=== PATIENT | male | born 1995 | race Caucasian/White ===

== ENCOUNTER 2016-10-04 19:37 | Emergency (ER) | payer OTHER ==
[2016-10-04 19:48] VITALS: BP 139/63
--- NOTE | 2016-10-04 21:08 | RAD ---
HISTORY: Wheezing, shortness of breath COMPARISONS: August 25, 2011 VIEWS: 2: Frontal dual-energy and lateral views of the chest. FINDINGS: CARDIOMEDIASTINAL SILHOUETTE: The cardiomediastinal silhouette is normal. SONAM: The sonam are normal. PLEURA: The costophrenic angles are sharp. No pleural abnormalities are noted. LUNG PARENCHYMA: The lungs are clear. ABDOMEN: The upper abdomen is clear. There is no subphrenic gas. BONES AND SOFT TISSUES: No bone or soft tissue abnormalities are noted. OTHER: None. IMPRESSION: NO ACTIVE CARDIOPULMONARY DISEASE.
--- NOTE | 2016-10-04 22:31 | ED ---
Respiratory - HPI Summary HPI Summary: Patient arrives to ED with CC of cough with scant amount of blood and sinus pressure with bloody discharge from the left nostril starting 3 days ago. Denies GRULLON, fever. Patient is a smoker. States the cough is productive with yellow phlegm. He states he has sinusitis in the past, but has never had blood in phlegm or nasal discharge. Denies weakness, or pain. History of walking PNA last year. - History of Current Complaint Chief Complaint: EDUpperRespComplaint Stated Complaint: COUGH/COLD/CONGESTION /BLOODY NOSE Time Seen by Provider: 10/04/16 19:53 Hx Obtained From: Patient Onset/Duration: Gradual Onset Timing: Constant Initial Severity: Mild Current Severity: Mild Pain Intensity: 0 Character: Cough (Productive) Sputum Amount: Moderate Sputum Color: Shafer-Tinged Aggravating Factor(s): URI, Passive Smoke Exposure Alleviating Factor(s): Nothing Associated Signs and Symptoms: URI, Nasal Congestion, Sinus Discomfort - Risk Factors Status Asthmaticus Risk Factors: Negative Pulmonary Embolism Risk Factors: Negative Cardiac Risk Factors: Negative Pseudomonas Risk Factors: Negative Tuberculosis Risk Factors: Negative - Allergy/Home Medications Allergies/Adverse Reactions: Allergies Allergy/AdvReac Type Severity Reaction Status Date / Time Shellfish-derived Products Allergy Swelling Verified 10/02/15 15:39 Of Face,Lips,& Throat PMH/Surg Hx/FS Hx/Imm Hx Previously Healthy: Yes Respiratory History: Reports: Hx Asthma History: Reports: Other Problems/Disorders - testicular torsion treated with orchiopexy ~2009 Psychiatric History: Reports: Hx Substance Abuse Denies: Hx Eating Disorder - Surgical History Surgery Procedure, Year, and Place: orchiopexy ~2009 - Immunization History Date of Tetanus Vaccine: Unknown Date of Influenza Vaccine: Unknown Infectious Disease History: No Infectious Disease History: Denies: Traveled Outside the [place] in Last 30 Days - Family History Known Family History: Positive: None - reviewed & noncontributory, Diabetes - mother - Social History Occupation: Unemployed Lives: With Family Alcohol Use: Occasionally Hx Substance Use: Yes Substance Use Type: Reports: None Substance Use Comment - Amount & Last Used: QUIT SMOKING MARIJUANA IN 2013 Hx Tobacco Use: Yes Smoking Status (MU): Heavy Every Day Tobacco Smoker Review of Systems Constitutional: Negative Eyes: Negative Positive: Nasal Discharge Cardiovascular: Negative Positive: Cough Gastrointestinal: Negative Skin: Negative Neurological: Negative Psychological: Normal All Other Systems Reviewed And Are Negative: Yes Physical Exam Triage Information Reviewed: Yes Vital Signs On Initial Exam: Initial Vitals Temp Pulse Resp BP Pulse Ox 98.4 F 81 18 139/63 99 10/04/16 19:42 10/04/16 19:42 10/04/16 19:42 10/04/16 19:42 10/04/16 19:42 Vital Signs Reviewed: Yes Appearance: Positive: Well-Appearing, No Pain Distress, Obese Skin: Positive: Warm Head/Face: Positive: Normal Head/Face Inspection Eyes: Positive: EOMI, Conjunctiva Clear ENT: Positive: Pharyngeal erythema, Nasal congestion, Nasal drainage Neck: Positive: Supple, No Lymphadenopathy Respiratory/Lung Sounds: Positive: Wheezes Cardiovascular: Positive: Normal Musculoskeletal: Positive: Normal, Strength/ROM Intact Neurological: Positive: Normal, Speech Normal Psychiatric: Positive: Normal AVPU Assessment: Alert Diagnostics - Vital Signs Vital Signs Temp Pulse Resp BP Pulse Ox 10/04/16 19:42 98.4 F 81 18 139/63 99 - Laboratory Lab Results: Lab Results 10/04/16 Range/Units 21:05 Group A Strep Rapid Negative (Negative) Lab Statement: Any lab studies that have been ordered have been reviewed, and results considered in the medical decision making process. Disposition - Course Course Of Treatment: CXR and rapid strep ordered. Both negative. 3 days cough with sinus drainage. Sudafed and tessalon given. Patient will follow up with PCP and encouraged to return to ED if symptoms fail to improve after 1 week or fever develops. - Differential Dx - Cardiopulmonary Differential Diagnoses - Cardiopulmonary: Bronchitis, Lower Resp Infection, Sinusitis - Diagnoses Provider Diagnoses: Sinusitis nasal - Physician Notifications Instructed by Provider To: Have Pt Call For Appt. Discharge - Discharge Plan Condition: Stable Disposition: HOME Prescriptions: Benzonatate CAP* [Tessalon CAP*] 100 mg PO TID #21 cap Pseudoephedrine HCl [Sudafed 24 Hour] 240 mg PO DAILY #10 tab Patient Education Materials: Sinusitis (ED) Referrals: Orly Dotson MD [Primary Care Provider] - Additional Instructions: Take medications as prescribed to you. Viral congestion and cough tends to last up to three weeks. If you feel you are not improving, come back to ER. Follow up with your PCP.
== END 2016-10-04 21:34 | disposition home or self-care (01) ==
LOC: ED 19:37
DX: J32.9 Chronic sinusitis, unspecified (principal); R09.81 Nasal congestion; R05 Cough; F17.210 Nicotine dependence, cigarettes, uncomplicated; J06.9 Acute upper respiratory infection, unspecified
CPT/HCPCS: 71020; 87651; 99281

== ENCOUNTER 2017-08-04 09:25 | Emergency (ER) | payer MEDICAID, OTHER ==
[2017-08-04] MEDS ORDERED: Albuterol/Ipratropium NEB.SOL* Albuterol 2.5 MG/Ipratropium 0.5 MG 3 ML INH ONE (10:00)
[2017-08-04] MEDS ORDERED: Ketorolac INJ* 30 MG/ML 1 ML VIAL IV ONE (10:02)
[2017-08-04] MEDS ORDERED: NS 0.9% 1000 ML* 2,000 ML IV ONE (10:02)
[2017-08-04] MEDS ORDERED: Al Hydrox/Mg Hydrox/Simet LIQ* 30 ML UDC PO ONE (10:02)
[2017-08-04] MEDS ORDERED: Lidocaine 2% VISCOUS* 15 ML UDC PO ONE (10:02)
--- NOTE | 2017-08-04 10:08 | ED ---
Abdominal Pain/Male - HPI Summary HPI Summary: 22 male presents to ED BIBA with complaints of diffuse abdominal pain and chest pain. States abdominal pain began ~3 days ago. He has been unable to have a bowel movement since last Sunday. States he attempted this morning but only had "a rabbit sized stool". Has not tried/taken any medications. No new medications. States he has also been very stressed lately. Also complained of mid sternal chest pain that began last night and has since resolved, last a few hours. Described it as sharp and stating without radiation. Denies SOB and difficulty breathing. Admits to wheezing, however has asthma and has not had his inhaler due to not having a PCP. Denies vomiting. Admits to some nausea at times. Denies fever, chills, urinary symptoms, genitalia symptoms, recent travel and antibiotic use. Denies blood in stool. No PMHx other than irritable bowel syndrome and asthma. No other complaints at this time. Admits to sometimes being constipated, but never this bad or long. Has been eating a lot less, however has been drinking. Chest pain is similar to previous acid reflux attacks. - History of Current Complaint Chief Complaint: EDAbdPain Stated Complaint: ABD PAIN Hx Obtained From: Patient Onset/Duration: Sudden Onset, Lasting Days, Still Present, Worse Since Timing: Constant Severity Initially: Moderate Severity Currently: Severe Pain Intensity: 11 Pain Scale Used: 0-10 Numeric Location: Diffuse Radiates: No Radiates to: Chest Character: Sharp, Dull, Cramping Aggravating Factor(s): Nothing Alleviating Factor(s): Nothing Associated Signs And Symptoms: Positive: Chest Pain, Constipation, Nausea. Negative: Fever, Back Pain, Blood in Stool, Urinary Symptoms, Decreased Appetite , Vomiting, Diarrhea, Penile Discharge Similar Episode/Dx As:: previous acid reflux attacks and constipation "but worse " - Allergies/Home Medications Allergies/Adverse Reactions: Allergies Allergy/AdvReac Type Severity Reaction Status Date / Time Shellfish-derived Products Allergy Swelling Verified 10/02/15 15:39 Of Face,Lips,& Throat PMH/Surg Hx/FS Hx/Imm Hx Endocrine/Hematology History: Denies: Hx Diabetes Cardiovascular History: Denies: Hx Hypertension Respiratory History: Reports: Hx Asthma History: Reports: Other Problems/Disorders - testicular torsion treated with orchiopexy ~2009 Psychiatric History: Reports: Hx Substance Abuse Denies: Hx Eating Disorder - Surgical History Surgery Procedure, Year, and Place: orchiopexy ~2010 - Immunization History Date of Tetanus Vaccine: Unknown Date of Influenza Vaccine: Unknown Immunizations Up to Date: Yes Infectious Disease History: No Infectious Disease History: Denies: Traveled Outside the [place] in Last 30 Days - Family History Known Family History: Positive: None - reviewed & noncontributory, Diabetes - mother - Social History Alcohol Use: None Hx Substance Use: Yes - opiate and marijuana abuse 3 years ago, nothing since Substance Use Type: Reports: None Substance Use Comment - Amount & Last Used: hx of pill and Marijuana Hx Tobacco Use: Yes Smoking Status (MU): Heavy Every Day Tobacco Smoker Review of Systems Constitutional: Negative Positive: Chest Pain Respiratory: Negative Positive: Cough - over the past couple of weeks "cold like symptoms" improving Positive: Abdominal Pain Genitourinary: Negative Musculoskeletal: Negative Neurological: Negative All Other Systems Reviewed And Are Negative: Yes Physical Exam Triage Information Reviewed: Yes Vital Signs On Initial Exam: Initial Vitals Temp Pulse Resp BP Pulse Ox 98.2 F 82 18 145/80 96 08/04/17 09:36 08/04/17 09:36 08/04/17 09:36 08/04/17 09:36 08/04/17 09:36 96% patient has wheezing diffusely, asthma medical history without inhaler or treatment due to noncompliance and no PCP. BP improved 136/58 O2 improved to 98% after meds and pain relief. Vital Signs Reviewed: Yes Appearance: Positive: Well-Appearing, Well-Nourished, Pain Distress - mild- moderate Skin: Positive: Warm, Skin Color Reflects Adequate Perfusion, Dry. Negative: Cold, Cyanosis @, Pale, Erythema @ Head/Face: Positive: Normal Head/Face Inspection Eyes: Positive: Conjunctiva Clear ENT: Positive: Hearing grossly normal, Pharynx normal Neck: Positive: Supple, Nontender, No Lymphadenopathy Respiratory/Lung Sounds: Positive: Clear to Auscultation, Breath Sounds Present , Wheezes - diffuse. Negative: Rales, Rhonchi Cardiovascular: Positive: Normal, RRR, Pulses are Symmetrical in both Upper and Lower Extremities. Negative: Murmur, Rub Abdomen Description: Positive: No Organomegaly, Soft, Distended, Guarding, Other : - diffuse tenderness. Negative: Bruit, CVA Tenderness (R), CVA Tenderness (L) , McBurney's Point Tenderness Bowel Sounds: Positive: Present, Hypoactive Musculoskeletal: Positive: Normal, Strength/ROM Intact Neurological: Positive: Normal, Sensory/Motor Intact, Alert, Oriented to Person Place, Time - Bita Coma Scale Coma Scale Total: 15 Diagnostics - Vital Signs Vital Signs Temp Pulse Resp BP Pulse Ox 08/04/17 09:41 89 22 98 08/04/17 09:36 98.2 F 82 18 145/80 96 - Laboratory Result Diagrams: 08/04/17 10:24 08/04/17 10:24 Lab Statement: Any lab studies that have been ordered have been reviewed, and results considered in the medical decision making process. - Radiology abdomen xray Xray Interpretation: Positive (See Comments) - Moderate stool in the colon with moderate rectal distention with formed appearing stool. Negative for dilated bowel loops to indicate bowel obstruction. Radiology Interpretation Completed By: Radiologist - and myself - EKG EKG Cardiac Rate: NL EKG Rhythm: Sinus Rhythm ST Segment: Normal Ectopy: None EKG Interpretation: NSR at 71bpm, no STEMI or obvious changes EKG Comparison: No Significant Change Re-Evaluation - Re-Evaluation First Eval Re-Evaluation Time: 11:30 Change: Improved - had relief from medications and duoneb, updated on labs and imaging results. pain completely resolved. Abdominal Pain Fem Course/Dx - Course Course Of Treatment: labs and urinalysis obtained, unremarkable without WBC or CRP elevation. xray of abdomen obtained and showed constipation. given duoneb due to diffuse wheezing from asthma had significant relief. EKG obtained and NSR without any concerns. troponin obtained and negative. This does not appear to be a cardiorespiratory etiology. Instead it appears to be stress related along with GERD/constipation. Will give mag citrate and miralax. also educated on high fiber diet and foods to stay away from. no concern for other etiology at this time. normal vitals. no bowel obstruction. given inhaler to use for asthma at home. Aware of worsening signs and symptoms to watch out for. Follow up with PCP. No other complaints. - Diagnoses Differential Diagnosis/HQI/PQRI: ACS, Bowel Obstruction, Constipation, Diverticulitis, Other - chest pain, asthma, anxiety Provider Diagnoses: Constipation, Wheezing, Asthma, Abdominal pain Discharge - Discharge Plan Condition: Stable Disposition: HOME Prescriptions: Albuterol HFA INHALER* [Ventolin HFA Inhaler*] 1 - 2 puff INH Q4H PRN #1 mdi PRN Reason: Sob/Wheezing Magnesium CITRATE* [Citrate of Magnesia*] 150 ml PO SEE INSTRUCTIONS #2 btl Polyethylene Glycol 3350* [Miralax*] 17 gm PO DAILY #3 packet Patient Education Materials: Constipation in Children (ED), High Fiber Diet (ED ), Acute Abdominal Pain (ED), Gas and Bloating (ED), Wheezing (ED) Referrals: Orly Dotson MD [Primary Care Provider] - [facility] [place] [facility] [Outside] Additional Instructions: Use prescribed medication as directed. Eat high fiber diet and stay away from binding foods such as bananas, apples, toast, rice. Give medication a few days to take into effect. Increase fluid intake. Use inhaler when needed for SOB/Wheezing. Call and make an appointment with PCP within 7 days. Any new or worsening symptoms please seek medical attention, as discussed.
[2017-08-04 10:32] LABS: Hematocrit 43 % (42-52); Hemoglobin 15.1 g/dl (14.0-18.0); Mean Corpuscular HGB Conc 35 g/dl (31-36); Mean Corpuscular Hemoglobin 30 pg (27-31); Mean Corpuscular Volume 85 fL (80-94); Mean Platelet Volume 10 um3 (7.4-10.4); Red Blood Count 5.09 10^6/ul (4.0-5.4); Red Cell Distribution Width 13 % (10.5-15); White Blood Count 8.2 10^3/ul (3.5-10.8)
[2017-08-04 10:48] LABS: ALT 62 U/L (7-52); AST 38 U/L (13-39); Albumin 4.4 g/dL (3.2-5.2); Alkaline Phosphatase 66 U/L (34-104); Amylase 17 U/L (29-103); Anion Gap 8 mmol/L (2-11); BUN/Creatinine Ratio 14.9 (8-20); Blood Urea Nitrogen 13 mg/dL (6-24); C Reactive Protein < 1.00 mg/L (< 5.00); CO2 Carbon Dioxide 23 mmol/L (22-32); Calcium 9.6 mg/dL (8.6-10.3); Chloride 109 mmol/L (101-111); EGFR African American 139.9 (>60); EGFR Non-African American 108.7 (>60); Globulin 2.5 g/dL (2-4); Glucose 108 mg/dL (70-100); Lipase 15 U/L (11.0-82.0); Potassium 3.7 mmol/L (3.5-5.0); Sodium 140 mmol/L (133-145); Total Protein 6.9 g/dL (6.4-8.9)
--- NOTE | 2017-08-04 11:12 | RAD ---
Indication: Diffuse abdominal pain. Constipation for one week. Nausea. Comparison: October 12, 2011 Technique: Supine and upright views of the abdomen. Report: No radiographic evidence for free air. Unremarkable bowel gas pattern. Moderate stool in the colon with moderate rectal distention with formed appearing stool. Negative for dilated bowel loops to indicate bowel obstruction. Negative for suspicious calcifications. Unremarkable soft tissue contours. IMPRESSION: Moderate stool in the colon with moderate rectal distention with formed appearing stool. Negative for dilated bowel loops to indicate bowel obstruction.
[2017-08-04 11:43] VITALS: BP 136/58
[2017-08-04 11:58] LABS: Urine Bacteria Absent (Absent); Urine Bilirubin Negative (Negative); Urine Glucose Negative (Negative); Urine Nitrite Negative (Negative)
== END 2017-08-04 12:18 | disposition home or self-care (01) ==
LOC: ED 09:25
DX: K59.00 Constipation, unspecified (principal); J45.909 Unspecified asthma, uncomplicated; R10.9 Unspecified abdominal pain; K58.9 Irritable bowel syndrome, unspecified; Z72.0 Tobacco use
CPT/HCPCS: 36415; 74020; 80053; 81003; 81015; 82150; 82553; 83605; 83690; 83874; 84484; 85025; 86140; 93005; 96360; 96374; 99282; A9270-GY; J1885

== ENCOUNTER 2018-03-03 17:33 | Emergency (ER) | payer OTHER ==
[2018-03-03] MEDS ORDERED: Magnesium CITRATE* 300 ML BTL PO ONE (17:51)
--- NOTE | 2018-03-03 18:38 | RAD ---
INDICATION: Constipation. COMPARISON: Comparison is made with a prior study from August 04, 2017. TECHNIQUE: Frontal supine films of the abdomen were obtained. FINDINGS: The small bowel and colon appear nondistended. There is a moderate amount retained stool within the colon which is most prominent within the rectosigmoid colon which is slightly distended. No significant abnormal calcifications are seen. IMPRESSION: MODERATE AMOUNT RETAINED STOOL WHICH IS MOST PROMINENT IN THE RECTOSIGMOID COLON.
[2018-03-03 19:06] VITALS: BP 123/69
--- NOTE | 2018-03-03 19:34 | ED ---
Nausea/Vomiting/Diarrhea HPI - HPI Summary HPI Summary: Patient is a 22-year-old male with a history of encopresis and constipation presented to the ED with chief complaint of no bowel movement 3 days. He states he normally takes Colace, however his doctor has not prescribed him more and he is unable to afford this at the pharmacy or [id number]. He endorses a mild amount of left lower quadrant tenderness without nausea, vomiting. Patient is obese and is a smoker. He states he does not drink fluids regularly and does not drink water. He drinks soda daily. He has not tried anything OTC for relief. - History of Current Complaint Chief Complaint: EDGeneral Stated Complaint: CONSTIPATION Time Seen by Provider: 03/03/18 17:45 Hx Obtained From: Patient Onset/Duration: Gradual Onset Timing: Constant Severity Initially: Moderate Severity Currently: Moderate Pain Intensity: 0 Pain Scale Used: 0-10 Numeric Location: Discrete At: LLQ Character: Dull, Cramping Aggravating Factor(s): Nothing Alleviating Factor(s): Nothing - Risk Factors Influenza Risk Factors: Negative - Allergies/Home Medications Allergies/Adverse Reactions: Allergies Allergy/AdvReac Type Severity Reaction Status Date / Time shellfish derived Allergy Swelling Verified 03/03/18 17:36 Of Face,Lips,& Throat PMH/Surg Hx/FS Hx/Imm Hx Previously Healthy: Yes Endocrine/Hematology History: Denies: Hx Diabetes Cardiovascular History: Denies: Hx Hypertension Respiratory History: Reports: Hx Asthma History: Reports: Other Problems/Disorders - testicular torsion treated with orchiopexy ~2009 Psychiatric History: Reports: Hx Substance Abuse Denies: Hx Eating Disorder - Surgical History Surgery Procedure, Year, and Place: orchiopexy ~2009 - Immunization History Date of Tetanus Vaccine: Unknown Date of Influenza Vaccine: Unknown Hx Pertussis Vaccination: No Immunizations Up to Date: Unable to Obtain/Confirm Infectious Disease History: No Infectious Disease History: Denies: Traveled Outside the [place] in Last 30 Days - Family History Known Family History: Positive: None - reviewed & noncontributory, Diabetes - mother - Social History Occupation: Unemployed Lives: With Family Alcohol Use: None Hx Substance Use: Yes - opiate and marijuana abuse 3 years ago, nothing since Substance Use Type: Reports: None Substance Use Comment - Amount & Last Used: hx of pill and Marijuana Hx Tobacco Use: Yes Smoking Status (MU): Heavy Every Day Tobacco Smoker Review of Systems Constitutional: Negative Negative: Fever, Skin Diaphoresis Negative: Palpitations, Chest Pain Positive: Abdominal Pain. Negative: Vomiting, Diarrhea, Nausea Genitourinary: Negative Positive: no symptoms reported, see HPI Negative: Arthralgia, Myalgia Skin: Negative Neurological: Negative All Other Systems Reviewed And Are Negative: Yes Physical Exam Triage Information Reviewed: Yes Vital Signs On Initial Exam: Initial Vitals Temp Pulse Resp BP Pulse Ox 98.5 F 79 13 117/75 98 03/03/18 17:35 03/03/18 17:35 03/03/18 17:35 03/03/18 17:35 03/03/18 17:35 Vital Signs Reviewed: Yes Appearance: Positive: Well-Appearing, Well-Nourished Skin: Positive: Warm, Skin Color Reflects Adequate Perfusion Head/Face: Positive: Normal Head/Face Inspection Eyes: Positive: EOMI, NAVJOT, Conjunctiva Clear Neck: Positive: Supple, No Lymphadenopathy Respiratory/Lung Sounds: Positive: Clear to Auscultation, Breath Sounds Present Cardiovascular: Positive: RRR, Pulses are Symmetrical in both Upper and Lower Extremities Abdomen Description: Positive: Nontender Bowel Sounds: Positive: Present Neurological: Positive: Sensory/Motor Intact, Alert, Oriented to Person Place, Time, Speech Normal Psychiatric: Positive: Normal, Affect/Mood Appropriate AVPU Assessment: Alert Diagnostics - Vital Signs Vital Signs Temp Pulse Resp BP Pulse Ox 03/03/18 19:05 98.5 F 80 15 123/69 99 03/03/18 17:35 98.5 F 79 13 117/75 98 - Laboratory Lab Statement: Any lab studies that have been ordered have been reviewed, and results considered in the medical decision making process. Naus/Vom/Diarrhea Course/Dx - Course Course Of Treatment: During the course of treatment, the patient's evaluated for acute constipation. Last BM was on . A mild amount of left lower quadrant pain. He states he takes Colace usually approximately every day or every other day, however his PCP has not renewed his prescription and he is unable to afford this pharmacy. Abdominal x-ray obtained which shows a moderate amount of school most notably in the sigmoid colon. He is given 300mg magnesium citrate and a prescription for Colace. He will return if he does not have a bowel movement with the magnesium citrate. He understands he will drink plenty of fluids and also follow up with his PCP. - Differential Dx/Diagnosis Differential Diagnoses - Male: Constipation Provider Diagnoses: Constipation Condition At Discharge: Stable Discharge - Sign-Out/Discharge Documenting (check all that apply): Discharge/Admit/Transfer - Discharge Plan Condition: Stable Disposition: HOME Prescriptions: Docusate CAP* [Colace Cap*] 100 mg PO DAILY #30 cap Patient Education Materials: Constipation (ED), Encopresis (DC) Referrals: No Primary Care Phys,NOPCP [Primary Care Provider] - Additional Instructions: Drink plenty of water - Take colace as needed for constipation - Billing Disposition and Condition Condition: STABLE Disposition: Home
== END 2018-03-03 19:05 | disposition home or self-care (01) ==
LOC: ED 17:33
DX: K59.00 Constipation, unspecified (principal); R10.32 Left lower quadrant pain; F17.210 Nicotine dependence, cigarettes, uncomplicated
CPT/HCPCS: 74018; 99282; A9270-GY

== ENCOUNTER 2019-01-24 19:50 | Emergency (ER) | payer OTHER ==
[2019-01-24] MEDS ORDERED: Clindamycin CAP* 150 MG PO ONE (20:13)
[2019-01-24] MEDS ORDERED: Ibuprofen TAB* 600 MG PO ONE (20:13)
--- NOTE | 2019-01-24 20:15 | ED ---
Throat Pain/Nasal Congestion - HPI Summary HPI Summary: The patient is a 23 y/o M presenting to [facility] accompanied by girlfriend with a chief complaint of left molar pain which started a few years ago and has been intermittently increasing, with the worst pain in the last two days. He states that the tooth (18) has a hole in it from a filling in a dental carry that has fallen out. The sharp pain radiates to his jaw on the left side. He has been attempting to manage the pain with Ibuprofen 250mg a few times a day with the last dosage at 1200, and he has also been using salt water and mouth wash to decreased likelihood of infection. He has not seen a dentist for the pain. - History of Current Complaint Chief Complaint: EDDentalPain Time Seen by Provider: 01/24/19 20:08 Hx Obtained From: Patient Onset/Duration: Gradual Onset, Lasting Days - two, Still Present Severity: Moderate - Allergies/Home Medications Allergies/Adverse Reactions: Allergies Allergy/AdvReac Type Severity Reaction Status Date / Time shellfish derived Allergy Swelling Verified 01/24/19 19:54 Of Face,Lips,& Throat PMH/Surg Hx/FS Hx/Imm Hx Endocrine/Hematology History: Denies: Hx Diabetes Cardiovascular History: Denies: Hx Hypertension Respiratory History: Reports: Hx Asthma History: Reports: Other Problems/Disorders - testicular torsion treated with orchiopexy ~2009 Psychiatric History: Reports: Hx Substance Abuse Denies: Hx Eating Disorder - Surgical History Surgery Procedure, Year, and Place: orchiopexy ~2009 - Immunization History Date of Tetanus Vaccine: Unknown Date of Influenza Vaccine: Unknown Infectious Disease History: No Infectious Disease History: Denies: Traveled Outside the [place] in Last 30 Days - Family History Known Family History: Positive: Diabetes - mother - Social History Alcohol Use: None Hx Substance Use: Yes - opiate and marijuana abuse 3 years ago, nothing since Substance Use Type: Reports: None Substance Use Comment - Amount & Last Used: hx of pill and Marijuana Hx Tobacco Use: Yes Smoking Status (MU): Heavy Every Day Tobacco Smoker Review of Systems Negative: Fever Positive: Dental Pain - left molar (tooth 18), Other - dental pain radiates into right jaw All Other Systems Reviewed And Are Negative: Yes Physical Exam - Summary Physical Exam Summary: Appearance: Well appearing, no pain distress Skin: warm, dry, reflects adequate perfusion Head/face: normal Eyes: EOMI, NAVJOT ENT: tenderness around tooth 18 Neck: supple, non-tender Respiratory: CTA, breath sounds present Cardiovascular: RRR, pulses symmetrical Abdomen: non-tender, soft Musculoskeletal: normal, strength/ROM intact Neuro: normal, sensory motor intact, A&Ox3 Triage Information Reviewed: Yes Vital Signs On Initial Exam: Initial Vitals Temp Pulse Resp BP Pulse Ox 97.1 F 81 16 168/78 98 01/24/19 19:52 01/24/19 19:52 01/24/19 19:52 01/24/19 19:52 01/24/19 19:52 Vital Signs Reviewed: Yes Diagnostics - Vital Signs Vital Signs Temp Pulse Resp BP Pulse Ox 01/24/19 19:52 97.1 F 81 16 168/78 98 - Laboratory Lab Statement: Any lab studies that have been ordered have been reviewed, and results considered in the medical decision making process. EENT Course/Dx - Course Assessment/Plan: The patient is a 23 y/o M presenting to [facility] accompanied by girlfriend with a chief complaint of left molar pain in tooth 18 which started a few years ago and has been intermittently increasing, with the worst pain in the last two days. Upon physical exam, the patient exhibits tenderness around tooth 18. He is diagnosed with toothache. He will be discharged home with prescription for Ibuprofen and Clindamycin, which he will receive the first dosages in the ED. He will follow up with a dentist in 2-3 days for further treatment. He agrees with this plan and understands the need for return to the ED for any new or worsening symptoms. - Diagnoses Provider Diagnoses: Toothache Discharge - Sign-Out/Discharge Documenting (check all that apply): Patient Departure - Patient will be discharged home. Patient Received Moderate/Deep Sedation with Procedure: No - Discharge Plan Condition: Stable Disposition: HOME Prescriptions: Clindamycin HCl 300 mg PO QID #40 capsule Ibuprofen TAB* [Motrin TAB* 600 MG] 600 mg PO Q8H PRN #15 tab MDD 3 PRN Reason: Pain Patient Education Materials: Toothache (ED) Referrals: [facility] [Outside] - 3 Days [facility] [Outside] - 3 Days Additional Instructions: Please take medications as prescribed. Follow up with a dentist in 2-3 days. RETURN TO THE EMERGENCY DEPARTMENT FOR ANY NEW OR WORSENING SYMPTOMS. - Billing Disposition and Condition Condition: STABLE Disposition: Home - Attestation Statements Document Initiated by Vanessa: Yes Documenting Scribe: Vidhya Simons Provider For Whom Vanessa is Documenting (Include Credential): Dr. Maciej Lagos MD Scribe Attestation: Vidhya Juarez scribed for Dr. Maciej Lagos MD on 01/24/19 at 2032. Scribe Documentation Reviewed: Yes Provider Attestation: The documentation as recorded by the Vidhya chakraborty accurately reflects the service I personally performed and the decisions made by me, Dr. Maciej Lagos MD Status of Scribe Document: Viewed
[2019-01-24 20:23] VITALS: BP 145/76
[2019-01-25] MEDS ORDERED: Docusate CAP* 100 MG PO SCH (09:00)
== END 2019-01-24 20:21 | disposition home or self-care (01) ==
LOC: ED 19:50
DX: K08.89 Other specified disorders of teeth and supporting structures (principal); Z91.013 Allergy to seafood; F17.200 Nicotine dependence, unspecified, uncomplicated
CPT/HCPCS: 99282; A9270-GY

== ENCOUNTER 2019-05-05 19:41 | Emergency (ER) | payer SELFPAY ==
[2019-05-05 19:48] VITALS: BP 133/80
--- NOTE | 2019-05-05 20:01 | UC ---
Respiratory Complaint HPI - HPI Summary HPI Summary: 23 yo male presents with sinus congestion, runny nose, dry cough, and post nasal drip since yesterday. He has been taking dayquill OTC with mild relief. He left work early today and is requesting a work note. He denies fever, chills , sore throat, SOB, abdominal pain, n/v. He smokes daily. - History of Current Complaint Chief Complaint: UCRespiratory Stated Complaint: uri Time Seen by Provider: 05/05/19 20:01 Hx Obtained From: Patient Onset/Duration: Gradual Onset Severity Currently: None Pain Intensity: 0 Character: Cough: Nonproductive - Allergies/Home Medications Allergies/Adverse Reactions: Allergies Allergy/AdvReac Type Severity Reaction Status Date / Time shellfish derived Allergy Swelling Verified 05/05/19 19:48 Of Face,Lips,& Throat Home Medications: Home Medications Dextromethorphan HBr [Vicks Dayquil Cough] 30 mg PO 05/05/19 [History] PMH/Surg Hx/FS Hx/Imm Hx - Additional Past Medical History Additional PMH: None - Surgical History Surgical History: Yes Surgery Procedure, Year, and Place: orchiopexy ~2009 - Family History Known Family History: Positive: Diabetes - mother - Social History Lives: With Family Alcohol Use: None Substance Use Type: None Substance Use Comment - Amount & Last Used: hx of pill and Marijuana Smoking Status (MU): Heavy Every Day Tobacco Smoker Type: Cigarettes Household Exposure Type: Cigarettes, Cigars, Pipe Review of Systems All Other Systems Reviewed And Are Negative: No Constitutional: Positive: Negative Skin: Positive: Negative Eyes: Positive: Negative ENT: Positive: Nasal Discharge, Sinus Congestion Respiratory: Positive: Cough Cardiovascular: Positive: Negative Gastrointestinal: Positive: Negative Genitourinary: Positive: Negative Neurological: Positive: Negative Psychological: Positive: Negative Physical Exam - Summary Physical Exam Summary: GENERAL: NAD. WDWN. No pain distress. SKIN: No rashes, sores, lesions, or open wounds. HEENT: Head: AT/NC Eyes: EOM intact. Conjunctiva clear without inflammation or discharge. Ears: Hearing grossly normal. LEFT TM with mild erythema and bulging. No canal edema or drainage. RIGHT TM WNL and intact. No injection Nose: Nasal mucosa pink and moist. NTTP maxillary and frontal sinus. Throat: Posterior oropharynx without exudates, erythema, or tonsillar enlargement. Uvula midline. NECK: Supple. Nontender. No lymphadenopathy. CHEST: CTAB. No r/r/w. No accessory muscle use. Breathing comfortably and in no distress. CV: RRR. Without m/r/g. Pulses intact. NEURO: Alert. PSYCH: Age appropriate behavior. Triage Information Reviewed: Yes Vital Signs: Initial Vital Signs Temp 98.0 F 05/05/19 19:46 Pulse 87 05/05/19 19:46 Resp 18 05/05/19 19:46 BP 133/80 05/05/19 19:46 Pulse Ox 97 05/05/19 19:46 Vital Signs Reviewed: Yes Respiratory Course/Dx - Course Course Of Treatment: Suspect viral illness. Advised to continue OTC medications and return if symptoms worsen or do not improve. Work not given for today - Differential Dx/Diagnosis Provider Diagnosis: Rhinosinusitis Discharge ED - Sign-Out/Discharge Documenting (check all that apply): Patient Departure All imaging exams completed and their final reports reviewed: No Studies - Discharge Plan Condition: Stable Disposition: HOME Patient Education Materials: Viral Syndrome (ED) Forms: *Work Release Referrals: No Primary Care Phys,NOPCP [Primary Care Provider] - Additional Instructions: If you develop a fever, shortness of breath, chest pain, new or worsening symptoms - please call your PCP or go to the ED immediately. Please continue taking over the counter medication. If your symptoms do not improve within 1 week - please return to be rechecked - Billing Disposition and Condition Condition: STABLE Disposition: Home
== END 2019-05-05 20:10 | disposition home or self-care (01) ==
LOC: UCEAST 19:41
DX: J32.9 Chronic sinusitis, unspecified (principal); R05 Cough; F17.210 Nicotine dependence, cigarettes, uncomplicated
CPT/HCPCS: 99211; G0463

== ENCOUNTER 2019-06-12 04:43 | Emergency (ER) | payer SELFPAY ==
[2019-06-12] MEDS ORDERED: Penicillin VK TAB* 250 MG PO ONE (04:56)
--- NOTE | 2019-06-12 04:57 | ED ---
Throat Pain/Nasal Congestion - HPI Summary HPI Summary: This patient is a 24 year old M presenting to [facility] with a chief complaint of molar pain since 06/08/19. Pt was prescribed antibiotics but stopped the course midway, as he lost the bottle while moving. He has not been to the dentist because he did not have insurance. Per triage, the patient rates the pain 6/10 in severity. - History of Current Complaint Chief Complaint: EDDentalPain Time Seen by Provider: 06/12/19 04:54 Hx Obtained From: Patient Onset/Duration: Gradual Onset, Lasting Days Severity: Severe Associated Signs And Symptoms: Positive: Negative Cough: None Related History: Smoking - Allergies/Home Medications Allergies/Adverse Reactions: Allergies Allergy/AdvReac Type Severity Reaction Status Date / Time shellfish derived Allergy Swelling Verified 06/12/19 04:48 Of Face,Lips,& Throat PMH/Surg Hx/FS Hx/Imm Hx Endocrine/Hematology History: Denies: Hx Diabetes Cardiovascular History: Denies: Hx Hypertension Respiratory History: Reports: Hx Asthma GI History: Reports: Hx Ulcer History: Reports: Other Problems/Disorders - testicular torsion treated with orchiopexy ~2009 Psychiatric History: Reports: Hx Substance Abuse Denies: Hx Eating Disorder - Surgical History Surgery Procedure, Year, and Place: orchiopexy ~2009 - Immunization History Date of Tetanus Vaccine: Unknown Date of Influenza Vaccine: Unknown Infectious Disease History: No Infectious Disease History: Denies: Traveled Outside the [place] in Last 30 Days - Family History Known Family History: Positive: None - reviewed & noncontributory, Diabetes - mother - Social History Alcohol Use: None Hx Substance Use: Yes - opiate and marijuana abuse 3 years ago, nothing since Substance Use Type: Reports: None Substance Use Comment - Amount & Last Used: hx of pill and Marijuana Hx Tobacco Use: Yes Smoking Status (MU): Heavy Every Day Tobacco Smoker Type: Cigarettes Review of Systems Negative: Fever Positive: Dental Pain All Other Systems Reviewed And Are Negative: Yes Physical Exam - Summary Physical Exam Summary: Appearance: Well-appearing, Well-nourished, lying in bed comfortable Skin: Warm, dry, no obvious rash Eyes: sclera anicteric, no conjunctival pallor ENT: Poor dentation carries; third molar tender to percussion, no pointing at the gum line Neck: deferred Respiratory: No signs of respiratory distress Cardiovascular: Appears well perfused, pulses are nml Abdomen: deferred Musculoskeletal: Moving all 4 extremities without obvious discomfort Neurological: Awake and alert, mentation is normal, speech is fluent and appropriate Psychiatric: affect is normal, does not appear anxious or depressed Triage Information Reviewed: Yes Vital Signs On Initial Exam: Initial Vitals Temp Pulse Resp BP Pulse Ox 98.8 F 120 20 122/84 97 06/12/19 04:45 06/12/19 04:45 06/12/19 04:45 06/12/19 04:45 06/12/19 04:45 Vital Signs Reviewed: Yes Procedures - Sedation Patient Received Moderate/Deep Sedation with Procedure: No Diagnostics - Vital Signs Vital Signs Temp Pulse Resp BP Pulse Ox 06/12/19 04:45 98.8 F 120 20 122/84 97 - Laboratory Lab Statement: Any lab studies that have been ordered have been reviewed, and results considered in the medical decision making process. EENT Course/Dx - Course Course Of Treatment: This patient is a 24 year old M presenting to [facility] with a chief complaint of molar pain since 06/08/19. Pt was prescribed antibiotics but stopped the course midway, as he lost the bottle while moving. He has not been to the dentist because he did not have insurance. Per triage, the patient rates the pain 6/10 in severity. In the ED course the patient was given penicillin. Patient will be discharged. The patient is agreeable with this plan. - Diagnoses Provider Diagnoses: Dental abscess Discharge ED - Sign-Out/Discharge Documenting (check all that apply): Patient Departure - Discharge - Discharge Plan Condition: Good Disposition: HOME Prescriptions: Penicillin VK TAB* [Penicillin VK 250 mg Tab*] 500 mg PO QID #40 tab Patient Education Materials: Dental Abscess (ED) Referrals: No Primary Care Phys,NOPCP [Primary Care Provider] - Additional Instructions: There are dentists who will let you set up a payment plan, you might try looking around for that. The antibiotic should help tamp down the acute flare but the underlying problem with the tooth will still be there and this will keep happening, eventually causing you to lose the tooth. - Billing Disposition and Condition Condition: GOOD Disposition: Home - Attestation Statements Document Initiated by Scribe: Yes Documenting Scribe: Laury Strickland Provider For Whom Scribe is Documenting (Include Credential): Paul Robertson MD Scribe Attestation: I, Laury Strickland, scribed for Paul Robertson MD on 06/14/19 at 1916. Scribe Documentation Reviewed: Yes Provider Attestation: The documentation as recorded by the Laury chakraborty accurately reflects the service I personally performed and the decisions made by me, Paul Robertson MD Status of Scribcolleen Document: Viewed
[2019-06-12 05:09] VITALS: BP 0/0
== END 2019-06-12 05:00 | disposition home or self-care (01) ==
LOC: ED 04:43
DX: K04.7 Periapical abscess without sinus (principal); J45.909 Unspecified asthma, uncomplicated; F17.210 Nicotine dependence, cigarettes, uncomplicated
CPT/HCPCS: 99282; A9270-GY

== ENCOUNTER 2019-07-19 00:33 | Emergency (ER) | payer SELFPAY ==
[2019-07-19] MEDS ORDERED: Albuterol/Ipratropium NEB.SOL* Albuterol 2.5 MG/Ipratropium 0.5 MG 3 ML INH ONE (03:40)
--- NOTE | 2019-07-19 03:45 | ED ---
HPI Chest Pain - HPI Summary HPI Summary: Patient is a 24 y/o M presenting to [facility] with complaints of chest pain that onset around 1500 07/18/19 while at work. He notes chest pain is aggravated by deep breaths and cough. Patient reports that he has had a productive cough, SOB , N/V for the past 5-6 days. Patient is unsure of fever. Patient has not been taking any medications for these Sx. PMHx of asthma is noted. He states that he used to take an inhaler but claims his PCP took him off of it. Patient endorses tobacco usage but denies alcohol and substance usage. PSHx of testicular surgery is reported. On triage, pain is rated 2/10. Home medications and allergies are reviewed. - History of Current Complaint Chief Complaint: EDUpperRespComplaint Time Seen by Provider: 07/19/19 02:36 Hx Obtained From: Patient Onset/Duration: Started Hours Ago, Started Days Ago, Still Present Timing: Constant, Lasting Hours, Lasting Days Current Severity: Mild Pain Intensity: 2 Pain Scale Used: 0-10 Numeric Aggravating Factor(s): Deep Breaths, Other: - cough Associated Signs and Symptoms: Positive: Chest Pain, Nausea, Productive Cough, Vomiting. Negative: Fever - on vitals, temp is 97.6 F - Allergy/Home Medications Allergies/Adverse Reactions: Allergies Allergy/AdvReac Type Severity Reaction Status Date / Time shellfish derived Allergy Swelling Verified 07/19/19 00:46 Of Face,Lips,& Throat PMH/Surg Hx/FS Hx/Imm Hx Endocrine/Hematology History: Denies: Hx Diabetes Cardiovascular History: Denies: Hx Hypertension Respiratory History: Reports: Hx Asthma GI History: Reports: Hx Ulcer History: Reports: Other Problems/Disorders - testicular torsion treated with orchiopexy ~2009 Psychiatric History: Reports: Hx Substance Abuse Denies: Hx Eating Disorder - Surgical History Surgery Procedure, Year, and Place: orchiopexy ~2009 - Immunization History Date of Tetanus Vaccine: Unknown Date of Influenza Vaccine: Unknown Infectious Disease History: Yes Infectious Disease History: Denies: Traveled Outside the [place] in Last 30 Days - Family History Known Family History: Positive: Diabetes - mother - Social History Alcohol Use: None Hx Substance Use: Yes - opiate and marijuana abuse 3 years ago, nothing since Substance Use Type: Reports: None Substance Use Comment - Amount & Last Used: hx of pill and Marijuana Hx Tobacco Use: Yes Smoking Status (MU): Heavy Every Day Tobacco Smoker Type: Cigarettes Review of Systems - ROS Summary Review of Systems Summary: Home Medications Medication Instructions Recorded Confirmed Type Dextromethorphan HBr [Vicks 30 mg PO 05/05/19 History Dayquil Cough] Penicillin VK TAB* [Penicillin VK 500 mg PO QID #40 tab 06/12/19 Rx 250 mg Tab*] Negative: Fever Positive: Chest Pain Positive: Shortness Of Breath, Cough Positive: Vomiting, Nausea All Other Systems Reviewed And Are Negative: Yes Physical Exam - Summary Physical Exam Summary: General: Well-developed, Morbidly Obese Male. Unkempt Appearance, Mildly Ill- Appearing. No acute distress. HEENT: Normocephalic, Atraumatic. Eyes: Conjuctiva normal, PERRL. Ears: TMs within normal limits. Nares: (-) discharge, (-) erythema. Oropharynx: Clear, mucous membranes moist, (-) exudates. Neck: Soft, FROM, (-) lymphadenopathy, (-) thyromegaly, (-) JVD. Cardiovascular: Normal sinus rhythm, (-) murmur. Lungs: Distant breath sounds bilaterally with end expiratory wheezing; (-) rales , (-) rhonchi. Abdomen: Soft, non-tender, non-distended, (-) organomegaly, normal bowel sounds. Back: (-) CVA tenderness Extremities: Trace BLE edema Skin: Warm, dry, (-) rash. Neuro: Alert and oriented x3, no focal deficits. Psychiatric: Mood normal, affect normal. Triage Information Reviewed: Yes Vital Signs On Initial Exam: Initial Vitals Temp Pulse Resp BP Pulse Ox 97.6 F 85 20 155/59 100 07/19/19 00:35 07/19/19 00:35 07/19/19 00:35 07/19/19 00:35 07/19/19 00:35 Vital Signs Reviewed: Yes Procedures - Sedation Patient Received Moderate/Deep Sedation with Procedure: No Diagnostics - Vital Signs Vital Signs Temp Pulse Resp BP Pulse Ox 07/19/19 02:47 60 17 118/71 97 07/19/19 02:17 65 15 135/81 99 07/19/19 00:35 97.6 F 85 20 155/59 100 - Laboratory Lab Statement: Any lab studies that have been ordered have been reviewed, and results considered in the medical decision making process. - Radiology CXR Radiology Interpretation Completed By: ED Physician Summary of Radiographic Findings: No infiltrate, no pleural effusion, pending official report. - EKG 0037 Cardiac Rate: NL - rate of 61 BPM EKG Rhythm: Sinus Rhythm Summary of EKG Findings: EKG showed NSR with rate of 61 BPM, no STEMI. This EKG was reviewed and interpreted by Dr. Marcos. Chest Pain Course/Dx - Course Course Of Treatment: 24 y/o M with cough and SOB presents to ED. He is afebrile. Symptoms improved with albuterol nebulizer treatment. CXR was negative. He has a distant history of asthma. He was started on albuterol inhaler. Follow up with PCP and sooner for any worsened Sx. - Diagnoses Provider Diagnoses: Bronchitis with bronchospasm Discharge ED - Sign-Out/Discharge Documenting (check all that apply): Patient Departure - discharge - Discharge Plan Condition: Stable Disposition: HOME Patient Education Materials: Acute Bronchitis (ED), Bronchospasm (ED) Forms: *Work Release Referrals: [facility] [Outside] Additional Instructions: PLEASE RETURN TO ED FOR ANY NEW OR WORSENING SYMPTOMS. PLEASE FOLLOW UP WITH YOUR PRIMARY CARE PHYSICIAN WITHIN THREE DAYS. - Billing Disposition and Condition Condition: STABLE Disposition: Home - Attestation Statements Document Initiated by Vanessa: Yes Documenting Scribe: PETER HARPER Provider For Whom Vanessa is Documenting (Include Credential): EDEL MARCOS MD Scribe Attestation: PETER Juarez, scribed for EDEL MARCOS MD on 07/19/19 at 0637. Scribe Documentation Reviewed: Yes Provider Attestation: The documentation as recorded by the PETER chakraborty accurately reflects the service I personally performed and the decisions made by me, EDEL MARCOS MD Status of Scribe Document: Viewed
[2019-07-19] MEDS ORDERED: Albuterol HFA INHALER* 8 gm MDI INH ONE (04:27)
[2019-07-19 07:05] VITALS: BP 143/75
== END 2019-07-19 04:40 | disposition home or self-care (01) ==
LOC: ED 00:33
DX: J40 Bronchitis, not specified as acute or chronic (principal); F17.210 Nicotine dependence, cigarettes, uncomplicated
CPT/HCPCS: 71045; 93005; 99282; A9270-GY

== ENCOUNTER 2019-08-13 11:28 | Emergency (ER) | payer SELFPAY ==
--- NOTE | 2019-08-13 13:26 | ED ---
Throat Pain/Nasal Congestion - HPI Summary HPI Summary: Pt. is a 24 y.o male who presents to the ER for ongoing dental pain x several weeks. Pt. notes he has been on two different antibiotics and minimal improvement. Pt. states he has a dentist but does not have insurance right now. Pt. denies fever, facial edema, vomiting. Pt. notes that he has been taking 1500mg of tylenol 4-5 x a day x 1 week. Sxs are moderate in severity. No current modifying factors. - History of Current Complaint Chief Complaint: EDDentalPain Time Seen by Provider: 08/13/19 13:00 Hx Obtained From: Patient - Allergies/Home Medications Allergies/Adverse Reactions: Allergies Allergy/AdvReac Type Severity Reaction Status Date / Time shellfish derived Allergy Swelling Verified 07/19/19 00:46 Of Face,Lips,& Throat Home Medications: Home Medications Acetaminophen TAB* [Tylenol TAB*] 325 mg PO Q4H PRN 08/13/19 [History Confirmed 08/13/19] PMH/Surg Hx/FS Hx/Imm Hx Previously Healthy: Yes Endocrine/Hematology History: Denies: Hx Diabetes Cardiovascular History: Denies: Hx Hypertension Respiratory History: Reports: Hx Asthma Denies: Hx Chronic Obstructive Pulmonary Disease (COPD) GI History: Reports: Hx Ulcer History: Reports: Other Problems/Disorders - testicular torsion treated with orchiopexy ~2009 Psychiatric History: Reports: Hx Substance Abuse Denies: Hx Eating Disorder - Surgical History Surgery Procedure, Year, and Place: orchiopexy ~2009 - Immunization History Date of Tetanus Vaccine: Unknown Date of Influenza Vaccine: Unknown Infectious Disease History: No Infectious Disease History: Denies: Traveled Outside the [place] in Last 30 Days - Family History Known Family History: Positive: None - reviewed & noncontributory, Diabetes - mother, Non-Contributory - Social History Occupation: Unemployed Lives: With Family Alcohol Use: None Hx Substance Use: Yes - opiate and marijuana abuse 3 years ago, nothing since Substance Use Type: Reports: None Substance Use Comment - Amount & Last Used: hx of pill and Marijuana Hx Tobacco Use: Yes Smoking Status (MU): Heavy Every Day Tobacco Smoker Type: Cigarettes Review of Systems Constitutional: Negative Negative: Fever Positive: Dental Pain Cardiovascular: Negative Respiratory: Negative Gastrointestinal: Negative Skin: Negative Neurological: Negative All Other Systems Reviewed And Are Negative: Yes Physical Exam Triage Information Reviewed: Yes Vital Signs On Initial Exam: Initial Vitals Temp Pulse Resp BP Pulse Ox 97.5 F 88 16 162/94 98 08/13/19 11:30 08/13/19 11:30 08/13/19 11:30 08/13/19 11:30 08/13/19 11:30 Vital Signs Reviewed: Yes Appearance: Positive: Well-Appearing - Pt. sitting up in bed in NAD. Poor eye contact., No Pain Distress Skin: Positive: Warm, Dry Head/Face: Positive: Normal Head/Face Inspection Eyes: Positive: Normal, EOMI, NAVJOT Dental: Positive: Other - Poor dentition throughout. Caries noted to bottom second to last molar. No significant gingiva edema. No drainable abscess. No swelling under the tongue. No facial edema. Neck: Positive: Supple, Nontender, No Lymphadenopathy Respiratory/Lung Sounds: Positive: Clear to Auscultation, Breath Sounds Present Cardiovascular: Positive: Normal, RRR Neurological: Positive: Normal, CN Intact II-III Psychiatric: Positive: Affect/Mood Appropriate Procedures - Sedation Patient Received Moderate/Deep Sedation with Procedure: No Diagnostics - Vital Signs Vital Signs Temp Pulse Resp BP Pulse Ox 08/13/19 11:30 97.5 F 88 16 162/94 98 - Laboratory Result Diagrams: 08/13/19 13:28 08/13/19 13:28 Lab Statement: Any lab studies that have been ordered have been reviewed, and results considered in the medical decision making process. EENT Course/Dx - Course Course Of Treatment: Pt. with complaints of ongoing dental pain. No obvious signs of abscess on exam. Also concerning pt. has been taking 1500mg tylenol 4- 5 times a day. Tylenol level and basic labs ordered. Labs are unremarkable with extremely small increase in ALT. Tylenol level normal. Will not treat with antibx at this time. Pt. given list of dentist and strongly advised to schedule apt. adrianna. Educated on appropriate tylenol doses. Will return to er if sxs change or worsen. - Differential Diagnoses Differential Diagnoses: Fractured Tooth, Gingivitis, Samson's Angina, Periodontic Abscess, Periodontic Disease - Diagnoses Provider Diagnoses: Dentalgia Discharge ED - Sign-Out/Discharge Documenting (check all that apply): Patient Departure - Discharge Plan Condition: Good Disposition: HOME Patient Education Materials: Toothache (ED) Referrals: [facility] [Outside] Additional Instructions: Please see a dentist as soon as possible--list provided with discharge Do not exceed 3000mg-4000mg of tylenol a day Return to ER if symptoms change or worsen - Billing Disposition and Condition Condition: GOOD Disposition: Home - Attestation Statements Provider Attestation: I was available for consult. This patient was seen by the HILDA. The patient was not presented to, seen by, or examined by me. Ted Cox MD
[2019-08-13 13:37] LABS: ABS Basophils 0.1 10^3/ul (0-0.2); ABS Eosinophils 0.3 10^3/ul (0-0.6); ABS Lymphocytes 2.4 10^3/ul (1.0-4.8); ABS Monocytes 0.8 10^3/ul (0-0.8); ABS Neutrophils 5.9 10^3/ul (1.5-7.7); Eosinophil % 3.4 %; Hematocrit 45 % (42-52); Hemoglobin 15.7 g/dL (14.0-18.0); Lymphocyte % 25.8 %; Mean Corpuscular HGB Conc 35 g/dL (31-36); Mean Corpuscular Hemoglobin 30 pg (27-31); Mean Corpuscular Volume 86 fL (80-94); Mean Platelet Volume 10.2 fL (7.4-10.4); Platelet Count 215 10^3/uL (150-450); Red Blood Count 5.25 10^6 /uL (4.18-5.48); Red Cell Distribution Width 13 % (10-15); White Blood Count 9.5 10^3/uL (3.5-10.8)
[2019-08-13 13:58] LABS: ALT 55 U/L (7-52); AST 25 U/L (13-39); Albumin 4.6 g/dL (3.2-5.2); Albumin/Globulin Ratio 1.6 (1-3); Alkaline Phosphatase 68 U/L (34-104); Anion Gap 7 mmol/L (2-11); BUN/Creatinine Ratio 19.1 (8-20); Blood Urea Nitrogen 17 mg/dL (6-24); CO2 Carbon Dioxide 26 mmol/L (22-32); Calcium 9.9 mg/dL (8.6-10.3); Chloride 104 mmol/L (101-111); EGFR Non-African American 104.2 (>60); Globulin 2.9 g/dL (2-4); Glucose 104 mg/dL (70-100); Sodium 137 mmol/L (135-145); Total Protein 7.5 g/dL (6.4-8.9)
[2019-08-13 14:10] LABS: Acetaminophen < 15 mcg/mL; Salicylate < 2.50 mg/dL (<30)
[2019-08-13 14:52] VITALS: BP 114/67
== END 2019-08-13 14:50 | disposition home or self-care (01) ==
LOC: ED 11:28
DX: K08.89 Other specified disorders of teeth and supporting structures (principal); J45.909 Unspecified asthma, uncomplicated; F17.210 Nicotine dependence, cigarettes, uncomplicated
CPT/HCPCS: 36415; 80053; 80329; 85025; 99282; G0480